=== PATIENT | male | born 1965 | race Caucasian/White ===

== ENCOUNTER → 2019-08-23 | Outpatient (CLI) | payer OTHER ==
[~2019-08-23] MED LIST: IOHEXOL 180 MG/ML 10 ML VIAL. IT ONE; LIDOCAINE 1% Multi-Dose 20 ML VIAL. ID ONE
--- NOTE | 2019-08-23 16:41 | KCIC ---
Lumbar Myelogram History: Lumbar radiculopathy, left foot drop for 4 months, right hip pain for years Technique: Patient was informed of the risks of the procedure to include pain, infection, bleeding, seizures, nerve root injury, and allergic reaction to the contrast. All questions were answered. Patient signed a written consent form for a lumbar myelogram. The patient was placed in a prone oblique position on the fluoroscopy table. External site of the lower back was prepped and draped in the usual sterile fashion. Betadine was utilized for cleansing solution. 1% lidocaine was utilized for local anesthesia at the anticipated site of puncture right L3-4 interlaminar space. A 19-gauge guiding needle was advanced into the soft tissues. Through the guiding needle, a 25 gauge Pamela needle was advanced until there was return of cerebral spinal fluid. Approximately 15 cc of Omnipaque 180 were then injected during fluoroscopic visualization. The needles were removed. Fluoroscopic spot images including standing images were acquired of the lumbar spine. The patient was then transferred to the CT department for CT examination of the lumbar spine. There were no immediate complications. Fluoroscopy time: 79 seconds, 20 images Findings: There is no evidence of myelographic block. There is transitional anatomy of the lumbar spine, most inferior fully formed intervertebral disc space considered L4-5 and this report with a rudimentary intervertebral disc space at what is considered L5-S1. There is minimal posterior subluxation L4 relative to L5 reduced with flexion. There is minimal posterior subluxation L3 relative to L4 , very slightly less prominent with flexion. There is negligible posterior subluxation L2 relative to L3 created with extension. There is degenerative disc disease greatest L4-5. There is multilevel mild spondylosis. There are anterior extradural defects greatest at L4-5 and to lesser degree at L3-4 and L2-3. Impression: 1. There is transitional anatomy of the lumbar spine with most inferior fully formed intervertebral disc space considered L4-5, rudimentary intervertebral disc space at what is considered L5-S1. 2. There is degenerative disc disease greatest at L4-5. 3. There are anterior extradural defects greatest at L4-5 and to lesser degree at L3-4 and L2-3. 4. There is minimal posterior subluxation L4 relative to L5 reduced with flexion and minimal posterior subluxation L3 relative to L4 slightly less prominent with flexion. There is negligible posterior subluxation L2 relative to L3 created with extension. Electronically signed by: Bossman Morelos MD (08/23/2019 3:39 PM) [facility]
--- NOTE | 2019-08-23 16:41 | KCIC ---
CT lumbar spine exam History: Lumbar radiculopathy, left foot drop for 4 months, right hip pain for years Technique: CT imaging was performed of the lumbar spine after injection for lumbar myelogram. Multiplanar reconstruction images are submitted. Exposure: One or more of the following individualized dose reduction techniques were utilized for this examination: 1. Automated exposure control 2. Adjustment of the mA and/or kV according to patient size 3. Use of iterative reconstruction technique. Comparison: None Findings: There is transitional anatomy of the lumbar spine. There are small bilateral ribs at what is considered T12 for this report. There is assumption of 5 lumbar type vertebral bodies. Most inferior fully formed intervertebral disc space is considered L4-5 for this report, rudimentary intervertebral disc space at what is considered L5-S1. Lumbar vertebral body stature is overall maintained, small inferior L1 Schmorl's node. There is moderate to severe degenerative disc disease greater posteriorly at what is considered L4-5, mild to moderate degenerative disc disease posteriorly at what is considered L2-3 and to lesser degree at L3-4, minimally at L1-2 Conus terminates at the mid aspect of L1. There is very minimal posterior subluxation L4 relative to L5 and L3 relative to L4. T11-12: Neural foramina and spinal canal are adequate. T12-L1: Neural foramina and spinal canal are adequate. L1-2: Spinal canal and the neural foramina are adequate. There is moderate facet hypertrophic change. L2-L3: There is moderate facet hypertrophic change and mild buckling of the ligamentum flavum. There is mild prominence of posterior epidural fat centrally. There is very minimal bulge. Spinal canal and the neural foramina are adequate. L3-L4: There is moderate facet hypertrophic change. There is mild prominence of posterior epidural fat centrally. There is mild buckling of the ligamentum flavum. There is minimal bulge. Spinal canal is adequate. There is mild neural foramina compromise bilaterally mostly from posteriorly by facets. L4-L5: There is moderate to severe facet degenerative change. There is mild buckling of the ligamentum flavum. There is disc osteophyte complex and bulge, mild indentation upon the ventral thecal sac without significant spinal stenosis. There is fairly severe left greater than right neural foramina compromise due to disc osteophyte complex in combination with facet degenerative change, contact of the exiting L4 nerve roots bilaterally greater on the left. Disc osteophyte complex is also near the proximal extraforaminal L4 nerve roots greater on the left. L5-S1: Spinal canal and neural foramina are adequate. Impression: 1. There is transitional anatomy of the lumbar spine as described, most inferior fully formed intervertebral disc space considered L4-5 for this report and rudimentary intervertebral disc space at what is considered L5-S1. At what is considered L4-5, there is fairly severe left greater than right neural foramina compromise with contact of the exiting L4 nerve roots. There is no significant lumbar spinal stenosis. 2. There is very mild posterior subluxation of L3 relative to L4 and L4 relative to L5. 3. There is multilevel degenerative disc disease greatest at L4-5. Electronically signed by: Bossman Morelos MD (08/23/2019 3:39 PM) [facility]
== END | disposition home or self-care (01) ==
LOC: KCIC 13:07
PROVIDERS: ATTEND Neurological Surgery
DX: M54.16 Radiculopathy, lumbar region (principal)
CPT/HCPCS: 62304; 72132; Q9965; 72265

== ENCOUNTER → 2019-10-18 | Outpatient (CLI) | payer OTHER ==
[~2019-10-18] MED LIST changes: +DOCU-109 PO; +HYDR-3164 PO; -IOHEXOL 180 MG/ML 10 ML VIAL. IT ONE; -LIDOCAINE 1% Multi-Dose 20 ML VIAL. ID ONE; +METH-38 PO; +OMEP20TA63 PO
[2019-10-18 14:31] LABS: BASO # 0.1 x10^3/uL (0.0-0.2); BASO % 1 % (0-3); EOS # 0.1 x10^3/uL (0.0-0.7); EOS % 1 % (0-3); HEMATOCRIT 49.7 % (39.0-53.0); HEMOGLOBIN 16.9 g/dL (13.0-17.5); LYMPH # 1.6 x10^3/uL (1.0-4.8); LYMPH % 19 % (24-48); MEAN CORPUSCULAR HEMOGLOBIN 31 pg (25-35); MEAN CORPUSCULAR HGB CONC 34 g/dL (31-37); MEAN CORPUSCULAR VOLUME 90 fL (79-100); MONO # 0.5 x10^3/uL (0.0-1.1); MONO % 6 % (0-9); NEUT # 6.3 x10^3/uL (1.8-7.7); NEUT % 73 % (31-73); PLATELET COUNT 247 x10^3/uL (140-400); RED BLOOD COUNT 5.51 x10^6/uL (4.30-5.70); RED CELL DISTRIBUTION WIDTH 14.1 % (11.5-14.5); WHITE BLOOD COUNT 8.6 x10^3/uL (4.0-11.0)
[2019-10-18 15:25] LABS: ALBUMIN 4.1 g/dL (3.4-5.0); ALBUMIN/GLOBULIN RATIO 1.1 (1.0-1.7); CALCIUM 9.2 mg/dL (8.5-10.1); GFR 78.2; POTASSIUM 3.1 mmol/L (3.5-5.1); TOTAL BILIRUBIN 0.5 mg/dL (0.2-1.0); TOTAL PROTEIN 7.8 g/dL (6.4-8.2)
--- NOTE | 2019-10-19 10:00 | NUR ---
Notified Marques TRUONG @ Dr Jang regarding testosterone pellet right buttock. Also notified of K 3.1
== END | disposition home or self-care (01) ==
LOC: SURGPAT 13:29
PROVIDERS: ATTEND Neurological Surgery
DX: Z01.818 Encounter for other preprocedural examination (principal); M51.16 Intervertebral disc disorders with radiculopathy, lumbar region; M21.372 Foot drop, left foot; Z88.0 Allergy status to penicillin; Z88.5 Allergy status to narcotic agent
CPT/HCPCS: 36415; 80053; 85025; 87641

== ENCOUNTER 2019-10-28 07:13 | Day surgery (SDC) | payer OTHER ==
--- NOTE | 2019-10-27 19:59 | HP ---
ADMIT DATE: PREOPERATIVE HISTORY AND PHYSICAL Marques Banks dictating for Dr. Jose Juan Mcknight MD HISTORY OF PRESENT ILLNESS: The patient is a pleasant 54-year-old who has difficulty with low back pain. He has been having difficulty with numbness and weakness of his left leg and foot. He said he had low back pain as well as right hip pain for many years. Beginning in November, he did develop a left footdrop after bending and lifting. He says he has good days and bad days. Activities like bending increases back pain. He said he had epidural steroid injections in the past and had what sounds like an anaphylactic reaction to them and therefore has not had any further epidurals. He has been doing physical therapy exercises at home. PAST MEDICAL HISTORY: Kidney stones. PAST SURGICAL HISTORY: Cyst removal in 2015, a right lateral biceps rupture in 2016. FAMILY HISTORY: Cancer, diabetes, heart disease and hypertension. 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 He is . Exercises daily. Denies substance abuse. ALLERGIES: PENICILLIN AND PREDNISONE. CURRENT MEDICATIONS: Daily vitamin, Prilosec, vitamin D, and fish oil. REVIEW OF SYSTEMS: A 12-point review of systems was obtained and is noncontributory except for that mentioned above. NEUROSURGERY EXAMINATION: GENERAL APPEARANCE: Alert, pleasant, no acute distress. HEAD: Normocephalic and atraumatic. SKIN: Warm and dry. MUSCULOSKELETAL: Lumbar paraspinal muscle bulk is normal, restricted range of motion of the lumbar spine, [id number] tenderness of the lower lumbar spine with palpation, normal range of motion of the lower extremities bilaterally. EXTREMITIES: No clubbing, cyanosis or edema. NEUROLOGIC: Alert and oriented x 3, normal recent and remote memory. Strength 5/5 in bilateral lower extremities with complete left foot sensory was intact to light touch in bilateral lower extremities except for decrease in sensation over the dorsum of the left foot, reflexes were present and symmetric in lower extremities bilaterally, positive straight leg raising on the left, negative straight leg raising on the right, abnormal gait with left footdrop. IMAGING: Reviewed. I reviewed a lumbar myelogram and post-myelogram CT scan. On that study, there is a transitional anatomy. L5-S1 is rudimentary. The most inferior fully formed intervertebral disk space will be considered L4-L5. At L4-L5, there is a fairly severe left neural foraminal compromise due to a disk osteophyte complex, which contacts the exiting foraminal root. ASSESSMENT: 1. Intervertebral disk disorders with radiculopathy, lumbar region. 2. Footdrop, left foot. RECOMMENDATIONS: He is having significant radicular symptoms with footdrop. I have recommended a left transfacet decompression and microdiskectomy at L4-L5. We spoke about the rationale, technique, risks, and expected postoperative course. He would like to go ahead. We will make the arrangements. JOSE JUAN MCKNIGHT MD DR: JACK/bryson JOB#: [id number] / [id number]
[~2019-10-28] VITALS: Ht 188 cm; Wt 106.6 kg
[~2019-10-28 07:13] MED LIST changes: +BACITRACIN 50,000 UNIT in IV NORMAL SALINE 1000ML BAG 1,000 ML IRR ONE; +DEXAMETHASONE SOD PHOS 4 MG/ML VIAL ONE; -DOCU-109 PO; -HYDR-3164 PO; +HYDROmorphone 2 MG/ML VIAL IV PRN; +IV RINGERS,LACTATED 1000ML 1,000 ML IV SCH; +LIDOCAINE 2% PF 5 ML VIAL. ONE; -METH-38 PO; +MORPHINE SULFATE 2 MG/ML VIAL. IV PRN; -OMEP20TA63 PO; +ONDANSETRON PF 4 MG/2 ML VIAL. IV PRN; +ONDANSETRON PF 4 MG/2 ML VIAL. ONE; +PHENYLEPHRINE in 0.9% NACL PF 1 MG/10 ML SYRINGE. IV ONE; +PROCHLORPERAZINE 10 MG/2 ML VIAL. IV PRN; +PROPOFOL 20 ML IV ONE; +PROPOFOL 50 ML IV ONE; +ROCURONIUM 50 MG/5 ML VIAL. ONE; +ePHEDrine PF IN SALINE 50 MG/10 ML SYRINGE. IV ONE; +fentaNYL PF VIAL 100 MCG/2 ML VIAL IV PRN
[2019-10-28] MEDS ORDERED: GELATIN SPONGE SIZE 100. ONE (07:22)
[2019-10-28] MEDS ORDERED: THROMBIN TOPICAL 20,000 UNIT SPRAY.SYRN KIT TP ONE (07:22)
[2019-10-28] MEDS ORDERED: KETOROLAC 60 MG/2 ML VIAL. ONE (07:22)
[2019-10-28] MEDS ORDERED: OMEP20TA63 PO (07:46)
[2019-10-28] MEDS ORDERED: VANCOMYCIN 1GM IVPB FOR OMNI 250 ML IV ONE (08:00)
[2019-10-28] MEDS ORDERED: BUPIVACAINE-EPI 0.5%-1:200000 MPF 30 ML VIAL. INJ ONE (08:00)
[2019-10-28] MEDS ORDERED: KETAMINE HCL IN NACL, ISO-OSM 50 MG/5 ML SYRINGE ONE (08:12)
[2019-10-28] MEDS ORDERED: REMIFENTANIL 2 MG VIAL. IV ONE (08:12)
[2019-10-28] MEDS ORDERED: LIDOCAINE 2% PF 5 ML VIAL. ONE (08:13)
[2019-10-28] MEDS ORDERED: PHENYLEPHRINE 10 MG/ML VIAL. ONE ×2 (08:14→09:26)
[2019-10-28] MEDS ORDERED: MIDAZOLAM HCL/PF 2 MG/2 ML VIAL. ONE (08:16)
[2019-10-28] MEDS ORDERED: fentaNYL PF VIAL 100 MCG/2 ML VIAL ONE (09:01)
[2019-10-28] MEDS ORDERED: NEOSTIGMINE METHYLSULFATE 5 MG/5 ML SYRINGE. ONE (09:33)
[2019-10-28] MEDS ORDERED: GLYCOPYRROLATE 1 MG/5 ML VIAL. ONE (09:33)
[2019-10-28] MEDS ORDERED: METOCLOPRAMIDE HCL 10 MG/2 ML VIAL. ONE (09:40)
--- NOTE | 2019-10-28 09:42 | HP ---
ADMIT DATE: 10/28/2019 DATE OF SURGERY: 10/28/2019 HISTORY OF PRESENT ILLNESS: The patient is a pleasant 54-year-old who has difficulty with low back pain. He also is having difficulty with numbness and weakness of his left leg and foot. He said he had low back pain as well as the right hip pain for many years. Beginning in November, he developed a left foot drop after bending and lifting. He says he has good days and bad days. Activities like bending increase his back pain. He said he had epidural steroid injections in the past and had what sounds like an anaphylactic reaction to them and therefore has not had any further epidurals. He has been doing physical therapy exercises at home. PAST MEDICAL HISTORY: Kidney stones, cyst removal in 2014, right lateral biceps rupture in 2016. FAMILY HISTORY: Cancer, diabetes, heart disease and hypertension. 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 Exercises daily. Denies substance abuse. ALLERGIES: PENICILLIN AND PREDNISONE. CURRENT MEDICATIONS: One daily 50+, Prilosec, vitamin D, omega-3 fish oil. REVIEW OF SYSTEMS: A 12-point review of systems was obtained and is noncontributory except that mentioned above. PHYSICAL EXAMINATION: NEUROSURGERY EXAMINATION: GENERAL APPEARANCE: Alert, pleasant, no acute distress. HEAD: Normocephalic and atraumatic. SKIN: Warm and dry. MUSCULOSKELETAL: Lumbar paraspinal muscle bulk is normal, restricted range of motion of the lumbar spine, [id number] tenderness of lower lumbar spine with palpation, normal range of motion of the lower extremities bilaterally. EXTREMITIES: No clubbing, cyanosis or edema. NEUROLOGIC: Alert and oriented x 3, normal recent and remote memory. Strength 5/5 in bilateral lower extremities with complete left foot drop, sensory was intact to light touch in bilateral lower extremities except for decrease in sensation over the dorsum of the left foot. Reflexes are present and symmetric in the lower extremities bilaterally. Positive straight leg raising on the left, negative straight leg raising on the right, abnormal gait with a left foot drop. IMAGING: Reviewed. I reviewed a lumbar myelogram and post-myelogram CT scan. On that study, there is a transitional anatomy. L5-S1 is rudimentary. The most inferior fully formed intervertebral disk space will be considered at L4-L5. At L4-L5, there is a fairly severe left neural foraminal compromise due to disk osteophyte complex, which contacts the existing foramen root. ASSESSMENT: 1. Intervertebral disk disorders with radiculopathy, lumbar region. 2. Foot drop, left foot. He is having significant radicular symptoms with a foot drop. He has been doing physical therapy exercises that have not been helpful. I have recommended a left transfacet decompression and microdiskectomy at L4-L5. We spoke about the rationale, technique, risks, and expected postoperative course. He understands. He would like to go ahead. We have placed him in physical therapy. We will plan for surgery if he does not improve. OSMAR MCKNIGHT MD DR: JACK/bryson JOB#: [id number] / [id number]
[2019-10-28] MEDS ORDERED: diphenhydrAMINE 50 MG/ML VIAL ONE (10:07)
[2019-10-28] MEDS ORDERED: PROPOFOL 50 ML IV ONE (10:09)
[2019-10-28] MEDS ORDERED: DESFLURANE 61 TO 120 MINUTES IH ONE (10:39)
[2019-10-28] MEDS ORDERED: DESFLURANE > 120 MINUTES IH ONE (11:09)
[2019-10-28] MEDS ORDERED: METH-38 PO (12:23)
[2019-10-28] MEDS ORDERED: HYDR-3164 PO (12:23)
[2019-10-28] MEDS ORDERED: DOCU-109 PO (12:23)
--- NOTE | 2019-10-28 12:25 | DISCH ---
DISCHARGE INSTRUCTIONS Condition on Discharge Condition on Discharge: Stable Activity After Discharge Activity Instructions for Disc: Activity as tolerated, Avoid exertion Bathing Instructions: Shower-keep dressing dry Lifting Instructions after Dis: No heavy lifting, No pulling or pushing, Do not lift >10 pounds Diet after Discharge Additional Diet Restrictions: resume home diet Wound Incision Care Wound/Incision Care: Ice to area for comfort Other wound/incision instructi: may remove dressing in 48 hours if dry then may shower, no soaking Contacting the DRMac after DC Call your doctor for: Concerns you may have Follow-Up Follow up with: Dr. Mcknight's nurse in 2 weeks [phone] OSMAR MCKNIGHT MD Oct 28, 2019 12:24
[2019-10-28 12:30] VITALS: BP 134/68
[2019-10-28] MEDS ORDERED: HYDROcodone/APAP 5/325MG 1 TAB TABLET PO PRN ×2 (12:45)
--- NOTE | 2019-10-29 19:07 | PATHOLOGY ---
[facility] Accession Number: [id number] . 01 Material submitted: . vertebral column - LUMBAR DECOMPRESSION AND DISC . 01 Clinical history: . Left foot drop, lumbar herniated disc with radiculopathy. . 02 Diagnosis: Segments of fibrocartilaginous, fibroadipose, and skeletal muscle tissue and bone, lumbar decompression and disc: - Degenerative changes of fibrocartilaginous tissue. . (JP:mm; 10/29/2019) [facility], [facility] 10/29/2019 1606 Local . 02 Comment: There is no evidence of an acute inflammatory process or malignancy. . (JPM:mml; 10/29/2019) . 02 Electronically signed: . Baljeet Huynh MD, Pathologist NPI- [id number] . 01 Gross description: . Received in formalin labeled "Virgil Chavarria, lumbar decompression and disc" is a 3.6 x 2.5 x 0.8 cm aggregate of pink-goodman friable soft tissue fragments and goodman-white bone. Lens Hardener tissue is submitted in cassette A1 following decalcification. [place] [place] [facility] 10/28/2019 1747 Local . 02 Pathologist provided ICD-10: M51.36 . 02 CPT . 741962, [id number] Specimen Comment: A courtesy copy of this report has been sent to [phone], [phone] Specimen Comment: [id number] Specimen Comment: Report sent to and Performed at: 01 [facility] [address], [place], [place] [id number] MD Cesar Jernigan MD Phone: [phone] Performed at: 02 [facility] [address] [place], [place] [id number] MD Baljeet Huynh MD Phone: [phone]
--- NOTE | 2019-11-01 19:25 | OP ---
DATE OF SURGERY: 10/28/2019 PREOPERATIVE DIAGNOSIS: Lateral recess and foraminal narrowing L4-L5. POSTOPERATIVE DIAGNOSIS: Lateral recess and foraminal narrowing L4-L5. OPERATION PERFORMED: 1. Hemilaminotomy, L4-L5, left. 2. Trans-facet exposure, L4-L5, left with decompression of the foraminal nerve root as well as the traversing nerve root. BUN PANNER: Jyoti Koch, assisted with the surgery. Operation used of microscopy, fluoroscopy. OPERATIVE INDICATIONS: The patient is a pleasant 54-year-old man who developed acutely a complete foot drop, which failed to improve. I studied him with lumbar myelography and then I did not see a significant problem on his lumbar MRI scan. On the myelogram, the lowest fully formed joint space, which we will call L4-L5 had a significant amount of lateral/foraminal narrowing from a disk osteophyte complex. I recommended lumbar microsurgery to decompress that region, remove the disk osteophyte complex as well as it was ensure that both the both nerve roots at that level were quite free. He understood and he wished to go ahead. DESCRIPTION OF PROCEDURE: Following general endotracheal anesthesia, the patient was positioned prone. Lumbar region was prepped and draped in the standard fashion. ORLANDO hose and AV impulse boots were applied for DVT prophylaxis. A microscope was draped. Fluoroscopy was draped and brought into the field. Monitoring was established. Vancomycin 1 gram was given. Using fluoroscopic guidance, an incision was made directly over the interspace and dissected down through skin and subcutaneous tissue and reflected the paraspinal muscles, placing a micro lumbar retractor. I brought in the microscope and burred down a generous hemilaminotomy. I did perform a partial foraminotomy and then I worked superiorly and laterally to visualize the exiting nerve root and followed this out into the foramen. As I worked, I could visualize at the level of the disk, a posterior ridge of bulging disk along with osteophytes, which I then trimmed away with Kerrison's as well as pituitary removing the disk. As I worked, the nerve root, which had been pushed superolaterally moved back to a more normal position. I then worked inferiorly and followed the traversing root trimming away any pressure dorsal or dorsal medial of the nerve root as well as laterally. Both roots were free and I did palpate the disk immediately. I felt that a diskectomy in that location was warranted and I had fully decompressed these roots. I irrigated copiously with antibiotic solution. I removed the retractor, obtained hemostasis in the muscle and I closed the wound in layers with absorbable suture. Skin closed with 4-0 subcuticular stitch. I was quite pleased with the surgery. OSMAR MCKNIGHT MD DR: JACK/bryson JOB#: [id number] / [id number]
== END 2019-10-28 13:35 | disposition home or self-care (01) ==
LOC: SURG 07:13
PROVIDERS: ATTEND Neurological Surgery
DX: M48.061 Spinal stenosis, lumbar region without neurogenic claudication (principal); Z98.890 Other specified postprocedural states; Z87.442 Personal history of urinary calculi; Z88.1 Allergy status to other antibiotic agents; Z88.0 Allergy status to penicillin
CPT/HCPCS: 36415; 63047; 84132; 88304; 88311; 97116; 97162; 97530; A7015; J1200; J1885; J2001; J2250; J2405; J2704; J2710; J2765; J3010; J3370; J3490; J7030; 76000; J0171; J1100; J2370